=== PATIENT | female | born 1965 | race Caucasian/White ===

== ENCOUNTER 2024-04-12 08:37 | Outpatient (CLI) | payer BC | END 2024-04-12 08:38 | disposition home or self-care (01) | LOC: CSHRAD 08:37 | PROVIDERS: ATTEND Chiropractor | DX: M79.671 Pain in right foot (principal); M79.89 Other specified soft tissue disorders ==

== ENCOUNTER 2024-12-18 08:17 | Outpatient (CLI) | payer OTHER | END 2024-12-18 08:18 | disposition home or self-care (01) | LOC: CSHRAD 08:17 | PROVIDERS: ATTEND Chiropractor | DX: M54.2 Cervicalgia (principal); M54.50 Low back pain, unspecified; G89.29 Other chronic pain; M47.812 Spondylosis without myelopathy or radiculopathy, cervical region; M47.816 Spondylosis without myelopathy or radiculopathy, lumbar region | CPT/HCPCS: 72040; 72100 ==